=== PATIENT | female | born 1960 | race Caucasian/White ===

== ENCOUNTER 2022-12-26 09:59 | Outpatient (CLI) | payer MEDICAID ==
[~2022-12-26 09:59] MED LIST: EMOL396C TOP; GABA300C PO; HYDR-4383 PO
[2022-12-26 10:44] LABS: BASOPHILS % (AUTO) 0.7 % (0-1); EOSINOPHILS # (AUTO) 0.2 X10'3 (0-0.9); EOSINOPHILS % (AUTO) 3.3 % (0-6); HEMATOCRIT 39.8 % (35.0-45.0); HEMOGLOBIN 13.1 g/dl (12.0-16.0); LYMPHOCYTES # (AUTO) 2.4 X10'3 (1.1-4.8); MEAN CORPUSCULAR HEMOGLOBIN 28.9 PG (27.0-31.0); MEAN CORPUSCULAR HGB CONC 32.9 g/dL (33.0-36.5); MEAN CORPUSCULAR VOLUME 87.8 FL (78-98); MEAN PLATELET VOLUME 8.5 FL (7.4-10.4); MONOCYTES # (AUTO) 0.5 X10'3 (0-0.9); MONOCYTES % (AUTO) 9.2 % (2-12); NEUTROPHILS # (AUTO) 2.6 X10'3 (1.8-7.7); NEUTROPHILS % (AUTO) 45.8 % (42-75); PLATELET COUNT 249 X10'3 (140-440); RED BLOOD COUNT 4.54 X10'6 (4.20-5.60); WHITE BLOOD COUNT 5.7 X10'3 (4.5-11.0)
[2022-12-26 10:54] LABS: APTT 26 SECONDS (22-32)
[2022-12-26 11:02] LABS: ALANINE AMINOTRANSFERASE 43 U/L (12-78); ALBUMIN 3.5 G/DL (3.4-5.0); ALBUMIN/GLOBULIN RATIO 0.7 (1.1-1.5); ALKALINE PHOSPHATASE 100 IU/L (46-116); ANION GAP 6 (8-16); ASPARTATE AMINO TRANSFERASE 28 U/L (10-37); BILIRUBIN,TOTAL 0.3 MG/DL (0.1-1.0); BLOOD UREA NITROGEN 16 MG/DL (7-18); BUN/CREATININE RATIO 17.2 (10.0-20.0); CALCIUM 9.3 MG/DL (8.5-10.1); CHLORIDE 104 MMOL/L (99-107); CREATININE 0.93 MG/DL (0.40-0.90); GLUCOSE 95 MG/DL (70-104); POTASSIUM 4.3 MMOL/L (3.5-5.1); SODIUM 139 MMOL/L (135-145); TOTAL CARBON DIOXIDE 29.2 MMOL/L (24-32); TOTAL PROTEIN 8.2 G/DL (6.4-8.2); eGFR 61 ML/MIN
[2022-12-26 11:52] LABS: ABG BASE EXCESS 0.5 mmol/L (-2.0-2.0); ABG HCO3 25.4 mmol/L (22.0-26.0); ABG OXYGEN SATURATION 95.3 % (94-97); ABG PCO2 (T) 42.1 mmHg (32.0-45.0); ABG PO2 (T) 77.2 mmHg (75.0-100.0); ALLEN'S TEST POSITIVE; FMetHb 0.2 % (0.0-1.5); FO2Hb 94.2 % (94-97); TOTAL HEMOGLOBIN 14.2 G/dl (12.0-16.0)
== END 2022-12-26 23:59 | disposition home or self-care (01) ==
LOC: RAD 09:59
PROVIDERS: ATTEND Internal Medicine Cardiovascular Disease
DX: Z01.818 Encounter for other preprocedural examination (principal); I65.23 Occlusion and stenosis of bilateral carotid arteries; I35.0 Nonrheumatic aortic (valve) stenosis; R06.02 Shortness of breath; Z79.82 Long term (current) use of aspirin; Z79.899 Other long term (current) drug therapy; Z87.891 Personal history of nicotine dependence
CPT/HCPCS: 36415; 36600; 71046; 80053; 82803; 83880; 85018; 85025; 85610; 85730; 93880; 94010; 94727; 94729

== ENCOUNTER 2023-01-01 10:29 | Outpatient (CLI) | payer MEDICAID ==
[2023-01-01] MEDS ORDERED: IODIXANOL 320 MG/ML INFUS..BTL 100ML IV ONE (10:40)
== END 2023-01-01 23:59 | disposition home or self-care (01) ==
LOC: RAD 10:29
PROVIDERS: ATTEND Internal Medicine Cardiovascular Disease
DX: I35.8 Other nonrheumatic aortic valve disorders (principal); I35.0 Nonrheumatic aortic (valve) stenosis; K76.0 Fatty (change of) liver, not elsewhere classified; R06.02 Shortness of breath; I65.29 Occlusion and stenosis of unspecified carotid artery; R16.0 Hepatomegaly, not elsewhere classified; J98.11 Atelectasis; K44.9 Diaphragmatic hernia without obstruction or gangrene; K57.30 Diverticulosis of large intestine without perforation or abscess without bleeding; K42.9 Umbilical hernia without obstruction or gangrene; K40.20 Bilateral inguinal hernia, without obstruction or gangrene, not specified as recurrent; M47.814 Spondylosis without myelopathy or radiculopathy, thoracic region; M43.17 Spondylolisthesis, lumbosacral region
CPT/HCPCS: 71275; 74174; J3490; Q9967

== ENCOUNTER → 2025-01-06 | Outpatient (CLI) | payer MEDICARE, MEDICAID ==
--- NOTE | 2025-01-06 17:05 | RADIOLOGY REPORT ---
EXAM: CT CT CHEST LOW DOSE HISTORY: ANNUAL LOW DOSE CT COMPARISON: Chest radiograph dated 12/26/2022 TECHNIQUE: Multidetector CT of the chest without the use of intravenous contrast. Axial, coronal and sagittal multiplanar reformats were performed by the technologist on a separate workstation. Radiation Dose Information: CT Dose: CTDI volume is 2.8 mGy. Dose-length product is 2.4 mGy*cm FINDINGS: Lung nodule evaluation: No pulmonary nodule is identified. Lungs Other Than Nodules: Bibasilar subsegmental atelectasis. Pleural Space: Normal. Cardiomediastinal: The heart is normal in size. Coronary artery calcification noted. Artificial aort ic valve. Median sternotomy wires and mediastinal vascular clips are seen. Calcification of the mitr al annulus. Scattered calcified plaques of the aorta. Aorta is normal in caliber. Other: Hepatic steatosis. Multilevel degenerative changes of the thoracic spine are noted. IMPRESSION: 1. No suspicious pulmonary nodule mass. LUNG-RADS Category 1: Negative Recommendation: LDCT in 12 months
== END | disposition home or self-care (01) ==
LOC: RAD 10:53
DX: Z12.2 Encounter for screening for malignant neoplasm of respiratory organs (principal); Z87.891 Personal history of nicotine dependence; I25.10 Atherosclerotic heart disease of native coronary artery without angina pectoris; I70.0 Atherosclerosis of aorta; K76.0 Fatty (change of) liver, not elsewhere classified; M47.814 Spondylosis without myelopathy or radiculopathy, thoracic region
CPT/HCPCS: 71271

== ENCOUNTER 2025-06-23 13:58 | Emergency (ER) | payer MEDICARE, MEDICAID ==
[~2025-06-23] VITALS: Ht 157.5 cm; Wt 82.6 kg
--- NOTE | 2025-06-23 14:16 | Physician Documentation ---
History of Present Illness ~ Chief Complaint: Chest Wall Pain Stated Complaint: SIDE PAIN Time Seen by MD: 14:37 OK to notify your PCP?: Yes Primary Medical Doctor: lashae muniz in Source: patient Mode of Arrival: POV Exam Limitations: no limitations HPI MSE: Variable 65-year-old female that presents to the emergency department for evaluation of chest wall pain under her left breast x3 days. Reports that she moved and felt a pop hurt since that time her chest wall has hurt with inspiration. No other symptoms reported at this time. Tetanus within 5 Years?: Yes Allergies: Coded Allergies: sulfamethoxazole (Verified Allergy, Unknown, 06/23/25) trimethoprim (Verified Allergy, Unknown, 06/23/25) Active Prescriptions See Medication Reconciliation Form. Medication Reconciliation Scheduled Gabapentin (Neurontin), 1 CAP PO TID Scheduled PRN Emollient Combination No.69 (Eucerin Skin Calming), 1 GM TOP BID PRN for rash Hydrocodone/Acetaminophen (Cable 5-325 Tablet), 1 TABLET PO TID PRN for pain Past Medical History Past Medical History: No Pertinent History, Herpes Zoster Past Surgical History: noncontributory Alcohol Use: None Drug Use: none Lives with: Spouse Lives In: Home Physical Exam Vital Signs: Temperature: 97.9, Source: Temporal, Heart Rate: 88, Respiratory Rate: 16, BP: 183/69, Pulse Oximetry: 97, Weight: 82.600 Oxygen Flow Rate: 0 Pulse Oximetry Reflects: adequate oxygenation General Appearance: alert, WD/WN, no apparent distress Respiratory Lungs are clear to auscultation all barrera. Patient points to left lower anterior chest wall as the area of pain. That has reproducible tenderness to palpation of the area without obvious crepitus deformity or flail segment. Back: no CVA tenderness Progress Results/Orders Reviewed/noted all lab results: Yes Results/Orders Vital Signs 06/23/25 06/23/25 06/23/25 06/23/25 14:08 14:22 14:29 15:23 Temp 97.9 98.6 Pulse 88 92 84 Resp 16 12 17 B/P (MAP) 183/69 129/85 (100) 115/55 (75) Pulse Ox 97 97 O2 Flow Rate 0 Laboratory Tests Test 06/23/25 14:25 White Blood Count 6.5 Red Blood Count 4.11 L Hemoglobin 12.2 Hematocrit 36.8 Mean Corpuscular Volume 89.4 Mean Corpuscular Hemoglobin 29.6 Mean Corpuscular Hemoglobin Concent 33.1 Red Cell Distribution Width 13.8 Platelet Count 219 Mean Platelet Volume 8.5 Neutrophils (%) (Auto) 50.3 Lymphocytes (%) (Auto) 35.8 Monocytes (%) (Auto) 10.4 Eosinophils (%) (Auto) 2.9 Basophils (%) (Auto) 0.6 Neutrophils # (Auto) 3.3 Lymphocytes # (Auto) 2.3 Monocytes # (Auto) 0.7 Eosinophils # (Auto) 0.2 Basophils # (Auto) 0.0 CBC Comment Sodium Level 139 Potassium Level 4.0 Chloride Level 107 Carbon Dioxide Level 27.5 Anion Gap 5 L Blood Urea Nitrogen 13 Creatinine 0.92 H Estimated GFR/1.73 m2 61 BUN/Creatinine Ratio 14.1 Glucose Level 119 H Calcium Level 8.8 Troponin I High Sensitivity 9 Pro-B-Type Natriuretic Peptide 40 Albumin 3.2 L Chemistry Comments EKG/XRAY/CT/US/VASC/MRI EKG : Intepreting Monitor?: No Additional Comment Twelve lead EKGs interpreted by me: Sinus rhythm rate of 86. Probable left atrial enlargement. Minimal ST depression anterior lateral leads. Chest X-Ray : Interpreted By: self Views: 1 VIEW Additional Comments Chest x-ray one view interpreted by me: No acute disease process. Lung barrera and cardiac silhouette with a normal limits. No obvious bony abnormalities. Soft tissues unremarkable. Heart Score: Heart Score Response (Comments) Value History N/A 0 EKG Normal 0 Age >65 2 Risk Factors 1 or 2 risk factors 1 Troponin Normal limit 0 Total 3 Medical Decision Making Additional information obtaine: N/A Findings The patient had a known incident causing the pain when she was vacuuming her car a couple of days ago. She felt a pop in the left lower anterior chest wall. I do not suspect she probably has a costochondral separation. I doubt rib fracture in the x-ray of the chest did not show any concerning findings. Cardiac workup was all within normal limits. The pain does not not appear consistent with a cardiac pain. It is very reproducible with deep inspiration movement of the trunk. I offered the patient pain medication here she had refused however she will accept with a few Cable for home. I instructed her to splint the ribs and take deep breaths periodically throughout the day. Follow up closely with the primary care physician for recheck in the next one or two days and return to the ER for any worsening or concerning symptoms. Differential Dx:Considerations: Include: Chest wall contusion, Rib fracture, Other (Costochondral separation. Rib fracture. Low clinical suspicion for ACS) Departure Disposition: HOME / SELF CARE / HOMELESS Impression: Primary Impression: Chest wall pain Condition: Stable Discharge Instructions: Chest Wall Pain Additional Instructions: Has a firm pillow to help splint the ribs. Take deep breaths periodically throughout the day to protect against a respiratory infection. Take the pain medications as needed. Follow up with the primary care physician for recheck in the next one or two days and return to the ER for any worsening or concerning symptoms Referrals: NO PRIMARY CARE PROVIDER (PCP) Prescriptions Hydrocodone Bit/Acetaminophen 5/325 MG (Cable 5/325 MG) 5 Mg/325 Mg Tablet 1 TAB PO Q4H PRN for moderate or severe pain, #20 TAB Prov: MARIO FLORES 06/23/25 Signature Scribe Signature: No scribe Attestation: The note accurately reflects work and decisions made by me.Mario OTOOLE 06/23/25 15:34 CHRISTINE SHARIF Jun 23, 2025 14:16 MARIO FLORES Jun 23, 2025 15:34
--- NOTE | 2025-06-23 14:21 | ELECTROCARDIOGRAPH REPORT ---
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 JESIKA Whitlock Measurements Intervals [place] Rate: 86 P: 66 CO: 182 QRS: 55 QRSD: 88 T: 85 QT: 379 QTc: 454 Interpretive Statements Sinus rhythm Probable left atrial enlargement Minimal ST depression, anterolateral leads Electronically Signed On 06-25-2025 11:47:[address] JESIKA Whitlock Please click the below link to view image of tracing.
[2025-06-23 14:22] VITALS: TEMP 98.6
[2025-06-23 14:39] LABS: MEAN PLATELET VOLUME 8.5 FL (7.4-10.4); RED CELL DISTRIBUTION WIDTH 13.8 % (11.5-14.5)
--- NOTE | 2025-06-23 14:41 | RADIOLOGY REPORT ---
EXAM: DI CHEST,SINGLE VIEW HISTORY: CP COMPARISON: Chest x-ray dated 12/26/2022, CT scan of the chest dated 01/06/2025 TECHNIQUE: Portable upright AP view of the chest was performed. FINDINGS: There is stable scarring in the bilateral lung bases. No pneumothorax, consolidative infiltrates, or pulmonary edema. The heart is not enlarged. There are postoperative changes of median sternotomy, new compared with prior chest x- ray. IMPRESSION: 1. Bilateral lung base scarring without evidence of acute intrathoracic process. 2. Postoperative changes of the heart.
[2025-06-23 15:02] LABS: CREATININE 0.92 MG/DL (0.40-0.90); PRO BRAIN NATRIURETIC PEPTIDE 40 PG/ML (0-125); TOTAL CARBON DIOXIDE 27.5 MMOL/L (24-32); eCRCL 47 ML/MIN; eGFR 61 ML/MIN
[2025-06-23] MEDS ORDERED: HYDR-3965 PO (15:33)
[2025-06-23 15:44] VITALS: BP 115/55; PULSE 84; RESP 17; O2SAT 97
== END 2025-06-23 15:46 | disposition home or self-care (01) ==
LOC: ER 14:00
DX: R07.89 Other chest pain (principal); Z88.2 Allergy status to sulfonamides; Z79.899 Other long term (current) drug therapy; X58.XXXA Exposure to other specified factors, initial encounter; Y93.89 Activity, other specified; Y92.89 Other specified places as the place of occurrence of the external cause; Y99.8 Other external cause status
CPT/HCPCS: 36415; 71045; 80048; 83880; 84484; 85025; 93005; 99285